=== PATIENT | female | born 1990 | race Caucasian/White ===

== ENCOUNTER 2017-03-21 09:13 | Day surgery (SDC) | payer SELFPAY, BC ==
[~2017-03-21 09:13] MED LIST: Acetaminophen/HYDROcodone 325-5 MG Tab PO PRN; Bupivacaine 0.25%/EPINEPHrine 1:200,000 10 ML SDV INJECT ONE; Bupivacaine 0.25%/EPINEPHrine 1:200,000 10 ML SDV ONE; EPINEPHrine 1:1000 1 MG/ML SDV ONE; Gentamicin 40 MG/ML 2 ML Vial ONE; Ketorolac 30 MG/ML SDV ONE; Lactated Ringers 1,000 ML IV SCH; Lidocaine 2% 5 ML SDV ONE; Midazolam 1 MG/ML 2 ML SDV ONE; Ondansetron 4 MG/2 ML SDV ONE; Propofol 200 MG/20 ML SDV ONE; Rocuronium 10 MG/ML 10 ML Syringe ONE; Succinylcholine/Normal Saline 200 MG/10 ML Syringe ONE; ceFAZolin 1 GM Vial ONE; ceFAZolin 2 GM in Premix Bag 1 BAG IV ONE; fentaNYL 250 MCG/5 ML SDV ONE
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
[2017-03-21] MEDS ORDERED: Dexamethasone 4 MG/ML 5 ML MDV ONE (10:01)
[2017-03-21] MEDS ORDERED: Meperidine PF 25 MG/ML Syringe IV ONE (10:22)
[2017-03-21] MEDS ORDERED: Metoclopramide 10 MG/2 ML SDV IVPUSH ONE (10:22)
[2017-03-21] MEDS ORDERED: fentaNYL 100 MCG/2 ML SDV IVPUSH PRN (10:22)
[2017-03-21] MEDS ORDERED: Sugammadex Sodium 200 MG/2 ML VIAL ONE (10:44)
[2017-03-21] MEDS ORDERED: Meperidine PF 50 MG/ML Syringe ONE (11:16)
--- NOTE | 2017-03-21 12:41 | PCM.OPNOTE ---
- General Post-Op/Procedure Note Date of Surgery/Procedure: 03/21/17 Operative Procedure(s): bilateral submuscular breast augmentation Pre Op Diagnosis: desire for breast augmentation Post-Op Diagnosis: Same Anesthesia Technique: General ET tube, Local Primary Surgeon: Sana Smiley Risk Compliance Analyst: Maribel Steven Complications: None Condition: Good Free Text/Narrative:: Intake & Output 03/20/17 03/21/17 03/21/17 23:59 07:59 15:59 Intake Total 900 Balance 900
[2017-03-21 12:53] VITALS: BP 109/50
--- NOTE | 2017-03-21 19:09 | OR ---
SURGEON: FREDY GRULLON MD DATE OF PROCEDURE: 03/21/2017 PREOPERATIVE DIAGNOSIS: Desire for breast augmentation. POSTOPERATIVE DIAGNOSIS: Desire for breast augmentation. PROCEDURE: Bilateral submuscular silicone breast augmentation. IT ASSOCIATE: Maribel Steven. ANESTHESIA: General ET tube with local anesthesia. INDICATIONS: Ms. Bang is a 26-year-old female seen today for bilateral breast augmentation. Risks and benefits were discussed with her thoroughly and options as well. She would like to proceed with a bilateral submuscular silicone filled breast implant augmentation. Risks and benefits were including, but not limited to, bleeding, infection, damage to underlying or overlying structures, possible need for future interventions, possible scarring, and possible implant failure. She was in agreement to proceed. PROCEDURE IN DETAIL: After informed consent was obtained and placed on the chart, the patient was brought to the operating theater in supine position. After adequate general anesthetic was obtained, the area was prepped and draped in a normal fashion. A time-out was completed to confirm side and site. Attention was then paid to the premarked breast border and at the inframammary fold, a 5 cm incision was made just lateral to the nipple-areolar complex. Dissection was carried 1st through the skin and subcutaneous tissues using Bovie electrocautery and a 15 blade. Once the lateral border of the pectoralis muscle was reached, the inferior border of the pectoralis was transected using Bovie electrocautery with meticulous hemostasis. Attention was then paid to the development of the submuscular plane. This was easily done with combined cautery and finger dissection. Care was taken not to release the lateral connection in order to prevent migration of the implant into the axillary area. Once this was completed, attention was then paid to suture fixation of the pocket using a 3-0 PDS suture in a [id number] fashion. Tacking sutures were placed towards the inframammary fold and one at the lateral margin in order to prevent any migration of the breast implant. The pockets were then packed with epinephrine-soaked laps and allowed to sit. Meticulous hemostasis was then obtained taking the amount segmentally. Once all last had been removed, attention was then paid to copious irrigation with 1st normal saline and then triple antibiotic solution. The implants were prepped in the normal fashion by placing them in triple antibiotic solution and using a no-touch technique with a Ying funnel, the silicone-filled breast implants were placed into the bilateral pocket. On the left side, reference #[id number], Alan silicone-filled breast implant, style 15, serial #[id number]. Serial number on the right is [id number] for the same implants style. Once the implants were placed, closure was obtained using deep 3-0 Monocryl stitches for the fascia, deep 3-0 Monocryl sutures for the dermis, and a running 4-0 subcuticular for the skin. The patient was sat up and symmetry was appreciated to be excellent. The patient was laid back in the supine position. The wounds were dressed with Steri-Strips, fluffs, and a compression bra. The patient tolerated this well. All counts of needles were correct at the end of the case. FOLLOWUP INSTRUCTIONS: The patient will see us in clinic on Friday, sooner if any problems, questions, or concerns. She was provided our contact information. MOISES / SUSANNAH /[phone]
== END 2017-03-21 13:01 | disposition home or self-care (01) ==
LOC: MW.SDS 09:13 → EDSTATUS 09:15 → MW.SDS 13:01
PROVIDERS: ATTEND Plastic Surgery
DX: Z41.1 Encounter for cosmetic surgery (principal); Z98.890 Other specified postprocedural states; Z87.891 Personal history of nicotine dependence; Z79.899 Other long term (current) drug therapy
CPT/HCPCS: 19325; 81025; J0171; J0690; J1100; J1580; J1885; J2250; J2405; J3010; J7120; 00402; C1789; J2704

== ENCOUNTER 2022-04-24 23:34 | Inpatient (IN) | payer BC ==
[2022-04-25] MEDS ORDERED: Methylergonovine 0.2 MG/1 ML Amp IM PRN (00:08)
[2022-04-25] MEDS ORDERED: Carboprost Tromethamine 250 MCG/1 ML Amp IM PRN (00:08)
[2022-04-25] MEDS ORDERED: Ondansetron 4 MG/2 ML SDV IVPUSH PRN (00:08)
[2022-04-25] MEDS ORDERED: Misoprostol 200 MCG Tab PO PRN (00:08)
[2022-04-25] MEDS ORDERED: Butorphanol 1 MG/ML SDV IVPUSH PRN ×2 (00:08→00:25)
[2022-04-25] MEDS ORDERED: Water For Irrigation,Sterile 1,000 ML Container IRR PRN ×2 (00:08→00:25)
[2022-04-25] MEDS ORDERED: Tranexamic Acid 1,000 MG in Sodium Chloride 0.9% 100 ML IV PRN (00:08)
[2022-04-25] MEDS ORDERED: Sodium Chloride 0.9% 20 ML SDV IV PRN ×2 (00:08→00:25)
[2022-04-25] MEDS ORDERED: Lidocaine 1% 50 ML MDV INJECT PRN ×2 (00:08→00:25)
[2022-04-25] MEDS ORDERED: Sodium Chloride 0.9% 10 ML Syringe FLUSH PRN ×2 (00:08→00:25)
[2022-04-25] MEDS ORDERED: Sodium Chloride 0.9% 2.5 ML Syringe FLUSH PRN ×2 (00:08→00:25)
[2022-04-25] MEDS ORDERED: Oxytocin/0.9 % Sodium Chloride 30 UNIT/500 ML BAG IV SCH ×2 (00:15→00:30)
[2022-04-25] MEDS ORDERED: Lactated Ringers 1,000 ML IV SCH (00:30)
[2022-04-25] MEDS ORDERED: Acetaminophen 325 MG Tab PO PRN (00:34)
[2022-04-25] MEDS ORDERED: Aluminum Hydroxide/Magnesium Hydroxide/Simethicone XS Susp 30 ML Cup PO PRN (00:34)
[2022-04-25] MEDS: Lactated Ringers 1,000 ML IV SCH ×2 (01:20→02:20)
[2022-04-25] MEDS ORDERED: ePHEDrine 50 MG/ML SDV IVPUSH PRN (02:33)
[2022-04-25] MEDS ORDERED: fentaNYL 100 MCG/2 ML SDV ONE (04:29)
[2022-04-25] MEDS ORDERED: Bupivacaine 0.5% 10 ML SDV ONE (04:30)
[2022-04-25] MEDS ORDERED: Benzocaine/Menthol 20%-0.5% Spray 78 GM Cannister TOP PRN (06:32)
[2022-04-25] MEDS ORDERED: Witch Hazel Medicated Pads 40/Jar TOP PRN (06:32)
[2022-04-25] MEDS ORDERED: oxyCODONE 5 MG Tab PO PRN (06:32)
[2022-04-25] MEDS ORDERED: Bisacodyl 10 MG Supp RECTAL PRN (06:32)
[2022-04-25] MEDS ORDERED: Lanolin 100% Cream 7 GM Tube TOP PRN (06:32)
[2022-04-25] MEDS ORDERED: Ibuprofen 800 MG Tab PO SCH (07:00)
[2022-04-25] MEDS ORDERED: Ketorolac 30 MG/ML SDV ONE (07:23)
[2022-04-25] MEDS: Ibuprofen 600 MG Tab PO SCH ×3 (08:31→21:06)
[2022-04-25] MEDS: Docusate Sodium 100 MG Cap PO SCH ×2 (08:32→21:06)
[2022-04-25] MEDS: Prenatal Multivitamin with Calcium/Folic Acid/Iron Tab PO SCH (10:00)
[2022-04-25] MEDS: Acetaminophen 500 MG Tab PO PRN (15:55)
[2022-04-26] MEDS: Acetaminophen 500 MG Tab PO PRN ×2 (02:26→10:07)
[2022-04-26] MEDS: Ibuprofen 600 MG Tab PO SCH (06:39)
[2022-04-26 07:45] VITALS: BP 111/74; PULSE 65
[2022-04-26] MEDS ORDERED: Measles, Mumps & Rubella Vaccine 0.5 ML SDV SUBCUT ONE (09:03)
[2022-04-26] MEDS: Prenatal Multivitamin with Calcium/Folic Acid/Iron Tab PO SCH (09:37)
[2022-04-26] MEDS: Docusate Sodium 100 MG Cap PO SCH (09:37)
== END 2022-04-26 12:34 | disposition home or self-care (01) | DRG 560 ==
LOC: MW.OBCHECK 23:34 → MW.OB 23:35 → MW.OBCHECK 04-25 00:08 → OBSVTOIN 04-25 05:47 → MW.OB 04-25 08:12
PROVIDERS: ADMIT Obstetrics & Gynecology; ATTEND Obstetrics & Gynecology
PROC: 10E0XZZ Delivery of Products of Conception, External Approach (ICD-10-PCS; principal; 2022-04-25)
PROC: 0KQM0ZZ Repair Perineum Muscle, Open Approach (ICD-10-PCS; 2022-04-25)
PROC: 10907ZC Drainage of Amniotic Fluid, Therapeutic from Products of Conception, Via Natural or Artificial Opening (ICD-10-PCS; 2022-04-25)
PROC: 3E0R3BZ Introduction of Anesthetic Agent into Spinal Canal, Percutaneous Approach (ICD-10-PCS; 2022-04-25)
PROC: 00HU33Z Insertion of Infusion Device into Spinal Canal, Percutaneous Approach (ICD-10-PCS; 2022-04-25)
DX: O36.63X0 Maternal care for excessive fetal growth, third trimester, not applicable or unspecified (principal); Z3A.39 39 weeks gestation of pregnancy; Z37.0 Single live birth; O70.1 Second degree perineal laceration during delivery
CPT/HCPCS: 01967; 36415; 51702; 59025; 59409; 85014; 85018; 85027; 86592; 86850; 86900; 86901; 90471; 90707; A9270-GY; J1885; J2001; J2590; J3010; J3490; J7120; U0002

== ENCOUNTER 2022-08-25 00:31 | Emergency (ER) | payer BC ==
[2022-08-25] MEDS ORDERED: Acetaminophen/oxyCODONE 325-5 MG Tab PO ONE (00:50)
[2022-08-25] MEDS ORDERED: Ofloxacin 0.3% Ophth Soln 5 ML Bottle EARBOTH ONE (00:50)
[2022-08-25] MEDS ORDERED: Amoxicillin/Clavulanate K 875-125 MG Tab PO ONE (00:51)
[2022-08-25 02:27] VITALS: BP 121/79; PULSE 74
== END 2022-08-25 02:08 | disposition home or self-care (01) ==
LOC: MW.ED 00:31
DX: H66.93 Otitis media, unspecified, bilateral (principal); H60.93 Unspecified otitis externa, bilateral
CPT/HCPCS: 99282; A9270

== ENCOUNTER 2025-02-28 00:12 | Inpatient (IN) | payer BC ==
[2025-02-28] MEDS ORDERED: Carboprost Tromethamine 250 MCG/1 mL Vial IM PRN (01:33)
[2025-02-28] MEDS ORDERED: Sodium Chloride 0.9% 2.5 ML Syringe FLUSH PRN (01:33)
[2025-02-28] MEDS ORDERED: Water For Irrigation,Sterile 1,000 ML Container IRR PRN (01:33)
[2025-02-28] MEDS ORDERED: Misoprostol 200 MCG Tab PO PRN (01:33)
[2025-02-28] MEDS ORDERED: Sodium Chloride 0.9% 10 ML Syringe FLUSH PRN (01:33)
[2025-02-28] MEDS ORDERED: Sodium Chloride 0.9% 20 ML SDV IV PRN (01:33)
[2025-02-28] MEDS ORDERED: Butorphanol 1 MG/ML SDV IVPUSH PRN (01:33)
[2025-02-28] MEDS ORDERED: Misoprostol 25 MCG (1/4 of 100 MCG) Tab VAG PRN ×2 (01:33)
[2025-02-28] MEDS ORDERED: Lidocaine 1% 50 ML MDV INJECT PRN (01:33)
[2025-02-28] MEDS ORDERED: Methylergonovine 0.2 MG/1 ML Amp IM PRN (01:33)
[2025-02-28] MEDS ORDERED: Terbutaline 1 MG/ML SDV SUBCUT PRN (01:33)
[2025-02-28] MEDS ORDERED: Oxytocin/0.9 % Sodium Chloride 30 UNIT/500 ML BAG IV SCH (01:45)
[2025-02-28 02:10] LABS: HEMATOCRIT 34.6 % (37.0-47.0); HEMOGLOBIN 12.1 g/dL (12.0-16.0); MEAN CORPUSCULAR HEMOGLOBIN 30.8 pg (28.0-32.0); MEAN PLATELET VOLUME 11.6 fL (9.4-12.3); PLATELET COUNT,PLT 193 K/uL (150-400); RED BLOOD CELL COUNT 3.93 M/uL (4.10-5.30); WHITE BLOOD CELL COUNT,WBC 5.82 K/uL (3.9-11.3)
[2025-02-28] MEDS: Lactated Ringers 1,000 ML IV SCH (07:14)
[2025-02-28] MEDS: Ropivacaine HCl/PF 400 MG in Premix Bag 1 BAG EPIDUR SCH (08:50)
[2025-02-28] MEDS ORDERED: ePHEDrine 50 MG/ML SDV IVPUSH PRN (09:01)
[2025-02-28] MEDS ORDERED: Phenylephrine HCl In 0.9% NaCl 1 MG/10 ML Syringe IVPUSH PRN (09:01)
[2025-02-28] MEDS ORDERED: dexmedeTOMIDine HCl 200 MCG/2 ML SDV EPIDUR SCH (09:15)
[2025-02-28] MEDS: Oxytocin/0.9 % Sodium Chloride 30 UNIT/500 ML BAG IV SCH (11:03)
[2025-02-28] MEDS ORDERED: oxyCODONE 5 MG Tab PO PRN (11:17)
[2025-02-28] MEDS ORDERED: Aluminum Hydroxide/Magnesium Hydroxide/Simethicone Susp 30 ML Cup PO PRN (11:17)
[2025-02-28] MEDS ORDERED: Witch Hazel Medicated Pads 40/Jar TOP PRN (11:17)
[2025-02-28] MEDS ORDERED: Benzocaine/Menthol 20%-0.5% Spray 78 GM Cannister TOP PRN (11:17)
[2025-02-28] MEDS ORDERED: Lanolin 100% Cream 7 GM Tube TOP PRN (11:17)
[2025-02-28] MEDS ORDERED: Docusate Sodium 100 MG Cap PO PRN (11:17)
[2025-02-28 11:48] LABS: PH,UMBILICAL ARTERIAL 7.32 (7.18-7.38); PH,UMBILICAL VENOUS 7.41 (7.25-7.45)
[2025-02-28] MEDS: Ibuprofen 800 MG Tab PO PRN (14:00)
[2025-02-28] MEDS: Acetaminophen 500 MG Tab PO PRN (19:45)
[2025-03-01 05:50] LABS: HEMOGLOBIN 12.8 g/dL (12.0-16.0)
[2025-03-01] MEDS: Ropivacaine HCl/PF 200 ML ONE (07:51)
[2025-03-01] MEDS: Bupivacaine 0.5% 10 ML SDV ONE (07:51)
[2025-03-01] MEDS: Phenylephrine HCl In 0.9% NaCl 1 MG/10 ML Syringe ONE (07:51)
[2025-03-01] MEDS: dexmedeTOMIDine HCl 200 MCG/2 ML SDV ONE (07:51)
[2025-03-01 09:03] VITALS: BP 123/65; PULSE 72
== END 2025-03-01 13:23 | disposition home or self-care (01) | DRG 560 ==
LOC: MW.OBCHECK 00:12 → MW.OB 00:13 → MW.OBCHECK 01:33 → OBSVTOIN 01:33 → MW.OB 01:33
PROVIDERS: ADMIT Obstetrics & Gynecology; ATTEND Obstetrics & Gynecology
PROC: 10E0XZZ Delivery of Products of Conception, External Approach (ICD-10-PCS; principal; 2025-02-28)
PROC: 0HQ9XZZ Repair Perineum Skin, External Approach (ICD-10-PCS; 2025-02-28)
PROC: 3E0R3BZ Introduction of Anesthetic Agent into Spinal Canal, Percutaneous Approach (ICD-10-PCS; 2025-02-28)
DX: O70.0 First degree perineal laceration during delivery (principal); Z3A.39 39 weeks gestation of pregnancy; Z37.0 Single live birth; Z98.890 Other specified postprocedural states; Z79.899 Other long term (current) drug therapy
CPT/HCPCS: 01967; 36415; 51702; 59025; 59414; 82803; 85014; 85018; 85027; 86592; 86850; 86900; 86901; A9270-GY; J0665; J2371; J2590; J2795; J7120